=== PATIENT | female | born 1960 | race Caucasian/White ===

== ENCOUNTER 2018-11-16 07:30 | Outpatient (RCR) | payer MEDICAID, SELFPAY ==
--- NOTE | 2018-09-16 12:01 | HP.PTEVAL ---
Patient's Visit Information EVELINE NORWOOD is a 57 year old F referred to Physical Therapy by PATTI BOB with a diagnosis of B shoulder pain. Date of Evaluation: 09/16/18 Physical Therapist: Norm Perez - Visit Plan Frequency: 2x /Week Duration: 4-6 Weeks Plan: Start with B shoulder strengthening in aquatic setting as tolerated. Add in postural stability/strengthening. Add in neutral spine stability exercises as well as pt. has an underlying lumbar spine issue. - Subjective Subjective: Pt. is here today for her initial evaluation with B shoulder pain. Pt. reports having pain for about 5 years. She reports having increased pain at lifting heavy suade at work. 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 She reports most low back pain while at work, only with static standing. 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 Pt. reprots icnreased pain while sleeping on her side. She is now sleeping in a reclining chair due to pain, and is doing better. Pt. did have a cervical spinal fusion (december 11, 2017). Completed by Dr. Valle. Pt. did report having some relief with surgery, but still does have some shoulder pain. Pt. denies N/T in bilateral UEs. Pt. does have relief, but only at rest. She also has some relief with pool exercises on here own, but reports not knowing what is going. - Pain B shoulders Pain Intensity (Out of 10): 2 Pain Intensity Range: 1, 9 - Objective POSTURE: Pt. has FH, rounded shoulders, overall slouched posture. decreased lumbar lordosis. PALPATION: Pt. had icnreased tenderness along bilateral bicipital groove and anterior aspect of bilateral subacromial space. NEURO: Pt. has normal sensation of bilatearl UEs. Pt. has 2+ biceps and triceps DTR bilaterally. ROM: Pt has full ROM of bilateral UEs. Pt. did report increased pain with flexion and abduction with over pressures. Pt. has no pain actively. MMT: RUE- wrist 5/5 throughout; elbow 5/5 throughout; shoulder- flexion 4+/5 increase NW, abd 4+/5 increase NW, ext 5/5 NE, ER 5/5 NE, IR 5/5 NE. LUE- wrist/elbow 5/5 throughout; shoulder- flexion 4+/5 increase NW; abd 4+/5 increase NW, ER 4+/5 NE, IR 5/5 NE, ext 5/5 NE. - Special Tests R Shoulder External Rotation Lag Test - RC Tear: Negative R Shoulder Supine Impingement Test - RC Tear: Negative R Shoulder Lift Off Test - Subscapular Tear: Negative R Shoulder Drop Sign - IS Test: Negative R Shoulder Empty Can - SS: Negative R Shoulder Neer - Impingement: Positive R Shoulder Denis Adolfo - Impingement: Positive R Shoulder Speeds Test - Labrum/Biceps: Positive R Shoulder O'Briens - SLAP/A-C: Negative L Shoulder External Rotation Lag Test - RC Tear: Negative L Shoulder Supine Impingement Test - RC Tear: Negative L Shoulder Lift Off Test - Subscapular Tear: Negative L Shoulder Drop Sign - IS Test: Negative L Shoulder Empty Can - SS: Negative L Shoulder Belly Press - SupScap: Negative L Shoulder Neer - Impingement: Positive L Shoulder Denis Adolfo - Impingement: Positive L Shoulder Biceps Load Test - Labrum: Negative L Shoulder Speeds Test - Labrum/Biceps: Positive - Goals Goal 1:: Pt. to be I with HEP. Goal Time Frame: 4-6 Weeks Goal 2:: Pt. to have full AROM of B shoulders without increase in symptoms. Goal Time Frame: 4-6 Weeks Goal 3:: Pt. to have increased strength of bilateral shoulders by 1/2 grade throughout effected musculature. Goal Time Frame: 4-6 Weeks Goal 4:: Pt. to sleep throughout the night without increase in symptoms. Goal Time Frame: 4-6 Weeks Goal 5:: Pt. to demonstrate improved posture throughout PT session. Goal Time Frame: 4-6 Weeks Goal 6:: Pt. to complete all work related activities without increase in symptoms. Goal Time Frame: 4-6 Weeks - Rehabilitation Potential Physical Therapy Diagnosis: Pt. has signs and symptoms consistent with B shoulder pain. Pt. has no signs of RTC tear, but more of signs of B biceps tendonosis, RTC tendonosis and impingment syndrome. Pt. would benefit from some postural strengthening, R shoulder stability/strengthening exercises to decrease symptoms with all recreation/work activities. Rehabilitation Potential: Good - Anticipated Interventions Patient/Client Instruction: Educate patient on: Condition, Plan of Care, Risk Factors, Benefits of Fitness Program For the Purpose of:: To facilitate caregiver knowledge, To improve self management, To prevent re-injury, To improve ability to perform tasks related to life management, To improve tolerance to ADL's Therapeutic Exercise to Include: Strength training, Power training, Endurance training, Postural training, In an aquatic setting, Passive ROM, Active ROM, Dynamic Lumbar Stabilization, Scapular Strength/Stabilization For the Purpose of:: To decrease pain, To increase ROM, To improve nutrient delivery to tissue, To increase oxygenation perfusion, To improve muscle performance and motor function, To improve ability to perform ADL's, To improve health of tissue, To decrease soft tissue restriction, To increase flexibility/ROM, To improve endurance Thank you for the opportunity to evaluate your patient. For Medicare and Medicare HMO plans, please review the plan of care and approve it. It will need to be FAXED BACK to us at [phone] for Medicare purposes. Please let me know if there are questions or concerns regarding this plan of care. Physician Signature: Date:
--- NOTE | 2018-11-18 07:55 | HP.PTDCSUM ---
HP - PT D/C Summary It has been my pleasure to treat EVELINE NORWOOD under orders from PATTI BOB, for the diagnosis of B shoulder pain for a total of 14 visit(s). Discharge Date: Please see the following information for a summary of their discharge status. - Subjective Subjective: Pt. reports I still have some pain in my shoulders. Pt. reports she has improved with her posture and strength, but continues to have pain with all over her daily activities. Pt. is to has gastric bypass in beginning of next year and is hopeful that this will help globally feeling better. - Pain B shoulders Pain Intensity (Out of 10): 2 - Overall Improvement % Improvement: 50 - Objective Objective/Function: ROM: Pt. has full ROM of bilateral shoulders, mild increase in symptoms at endranges. MMT: Pt. is globally 4+/5 throughout, but has increased soreness with flexion and abduction testing. Pt. has no signs of tears, posisbly some arthritic changes in her shoulders. Pt. has improved overall strength and reports being compliant with her HEP. Pt. reports no issues with bed mobility. Pt. continues to have increased pain with all work activities. Pt. is now working only 10 hours per week. Pt. is concerned and feels the need to see a health program manager. I referred pt. back to physician for referal. - Goals Goal 1:: Pt. to be I with HEP. Goal Progress: Goal Met Goal 2:: Pt. to have full AROM of B shoulders without increase in symptoms. Goal Progress: Goal Met Goal 3:: Pt. to have increased strength of bilateral shoulders by 1/2 grade throughout effected musculature. Goal Progress: Goal Met Goal 4:: Pt. to sleep throughout the night without increase in symptoms. Goal Progress: Progressing Goal 5:: Pt. to demonstrate improved posture throughout PT session. Goal Progress: Progressing Goal 6:: Pt. to complete all work related activities without increase in symptoms. Goal Progress: Progressing - Plan Plan: Pt. to be DC from PT at this point in time. - D/C Information If there are questions or concerns regarding this patient's physical therapy, please feel free to call me at [phone]. Thank you for the referral of this patient. Sincerely, Norm Perez DPT
== END 2018-11-16 19:00 | disposition home or self-care (01) ==
LOC: PT 07:30
DX: M25.519 Pain in unspecified shoulder (principal)
CPT/HCPCS: 97113; 97162; 97530

== ENCOUNTER 2019-02-05 09:47 | Emergency (ER) | payer MEDICAID, SELFPAY ==
[2019-02-05 09:49] VITALS: BP 120/80; PULSE 120; RESP 16; TEMP 36.3; O2SAT 100; BMI 44.1
--- NOTE | 2019-02-05 10:00 | RAD_ITS ---
STUDY: X-RAY - ACUTE ABDOMINAL SERIES REASON FOR EXAM: Female, 58 years old. Constipation and abdominal pain. TECHNIQUE: Single view of the chest. Supine, and erect view(s) of the abdomen were obtained. COMPARISON: None. FINDINGS: Mild increased linear markings at the left lung base suggestive left basilar atelectasis. Normal size heart. Normal mediastinum and pramod. Normal visualized pulmonary arteries. Normal visualized aortic arch and descending thoracic aorta. There is an abundance of fecal material throughout the colon. The soft tissue structures of the abdomen and pelvis are unremarkable. There are degenerative changes of the visualized lumbar spine. RAD/Acute Abdomen Inc Chest IMPRESSION: A large amount of fecal material is seen in the colon. Findings suggestive of mild linear atelectasis at the left lung base. Electronically Signed: Jose Alegria, at 10:28 EDT , Service support ,
--- NOTE | 2019-02-05 10:01 | EKG12_ITS ---
Test Reason : ABDOMINAL Blood Pressure : / mmHG Vent. Rate : 088 BPM Atrial Rate : 088 BPM P-R Int : 148 ms QRS Dur : 082 ms QT Int : 350 ms P-R-T Axes : 035 007 019 degrees QTc Int : 423 ms Normal sinus rhythm Normal ECG Confirmed by ROLA GANDHI ([id number]), primer expeditor and drier KRISTY FRANCO ([id number]) on 02/08/2019 4:45:19 PM Referred By: ISHMAEL Confirmed By:ROLA GANDHI
--- NOTE | 2019-02-05 10:02 | ED.VISSUMM ---
- ER Visit Summary Date of Service: 02/05/19 Chief Complaint: Cough, constipation History of Present Illness: The patient is a 58 F who is had a cough for the past 2 weeks. She went to her primary care doctor and she was prescribed albuterol, steroids, Tessalon Perles. She has also been taking Robitussin. She continues with a cough. Is causing her pain on the left side of her ribs. She denies fevers. She has been constipated for 4 days. She has been trying Colace at home without any relief. She denies any significant abdominal pain with this. Physical Examination: Vital signs reviewed. HEENT exam unremarkable. Heart is tachycardic and regular rhythm without murmurs. Lungs are clear to auscultation. He does have left-sided chest tenderness to palpation. Abdomen is soft with mild left upper quadrant tenderness. Extremities reveal no edema. Skin exam normal. Neurologic exam normal. Test Results: EKG normal sinus rhythm with rate of 88. No ST changes. Chest x-ray reveals atelectasis on the left. Acute abdominal series reveals constipation Emergency Department Course and Treatment: Patient does have constipation on the x-ray. She will be treated with MiraLAX for that. She also has a URI which she will continue her home medications. She will follow-up with her PCP if her symptoms persist Treatment Plan: [] Disposition: Discharge Impression: Constipation, URI This note was generated with [employer]ation software. It may contain incorrect words, spelling, and punctuation that were not noted in review of the chart prior to signing ED Disposition - Plan for ED Patient: Referrals: [facility] Doctor,Out of [Primary Care Provider] -
--- NOTE | 2019-02-05 10:03 | NURSING ---
NO OLD EKGS
--- NOTE | 2019-02-05 10:41 | ED.DEP ---
ED Disposition - Plan for ED Patient: Disposition: Home or Assisted Living Instructions: ED Constipation Prescriptions: Polyethylene Glycol 3350 [Miralax] 119 gm PO BID #1 powder Referrals: [facility] Doctor,Out of [Primary Care Provider] -
[2019-02-05 11:05] VITALS: PULSE 83; RESP 14
== END 2019-02-05 11:22 | disposition home or self-care (01) ==
PROVIDERS: Emergency Provider Emergency Medicine
DX: J06.9 Acute upper respiratory infection, unspecified (principal); K59.00 Constipation, unspecified; J98.11 Atelectasis
CPT/HCPCS: 74022; 93005; 99282

== ENCOUNTER → 2023-09-29 | Outpatient (CLI) | payer MEDICAID, SELFPAY ==
[2023-09-29 17:33] LABS: Bacteria 0 SEEN /hpf (None Seen)
[2023-09-29 17:51] LABS: Color, Urine Yellow (Yellow); Glucose, Dipstick Normal (Normal); Ketone-Dipstick Negative (Negative); Leukocyte Esterase-Dipstick 500 /ul (Negative); Nitrite-Dipstick Negative (Negative); Occult Blood-Urine 10 /ul (Negative); Protein-Dipstick 15 mg/dl (Negative); Specific Gravity, Urine 1.015 (1.002-1.030); Urine Bilirubin Dipstick Negative (Negative); Urine Clarity Sl. Cloudy (Clear); Urine Urobilinogen 4 mg/dl (Normal)
[2023-09-29 18:02] LABS: Mucous, Urine RARE /hpf (<or=2+); Red Blood Cells-Urine 0-5 SEEN /hpf (0-5); Squamous Epithelial Cells - UA 0-5 SEEN /hpf (5-10); White Blood Cells 25-50 SEEN /hpf (0-5)
== END | disposition home or self-care (01) ==
PROVIDERS: Visit Provider Physician Assistant
DX: N39.0 Urinary tract infection, site not specified (principal); R31.9 Hematuria, unspecified
CPT/HCPCS: 81001; 87077; 87086; 87088; 87186